=== PATIENT | female | born 1930 | race Caucasian/White ===

== ENCOUNTER → 2018-05-22 | Outpatient (CLI) | payer OTHER | LOC: HYPER 06:47 | DX: L97.822 Non-pressure chronic ulcer of other part of left lower leg with fat layer exposed (principal); E03.9 Hypothyroidism, unspecified; I10 Essential (primary) hypertension; E87.1 Hypo-osmolality and hyponatremia; M48.061 Spinal stenosis, lumbar region without neurogenic claudication; M81.0 Age-related osteoporosis without current pathological fracture; G25.0 Essential tremor; G89.29 Other chronic pain; R91.8 Other nonspecific abnormal finding of lung field; Z87.891 Personal history of nicotine dependence; W54.8XXD Other contact with dog, subsequent encounter ==

== ENCOUNTER → 2018-06-05 | Outpatient (CLI) | payer OTHER | LOC: HYPER 06:37 | DX: L97.822 Non-pressure chronic ulcer of other part of left lower leg with fat layer exposed (principal); G25.0 Essential tremor; G89.29 Other chronic pain; E87.1 Hypo-osmolality and hyponatremia; E03.9 Hypothyroidism, unspecified; I10 Essential (primary) hypertension; R60.0 Localized edema; R91.8 Other nonspecific abnormal finding of lung field; M81.0 Age-related osteoporosis without current pathological fracture; M48.061 Spinal stenosis, lumbar region without neurogenic claudication; Z87.891 Personal history of nicotine dependence ==